=== PATIENT | female | born 1935 | race Caucasian/White ===

== ENCOUNTER 2021-08-10 17:04 | Inpatient (IN) | payer MEDICARE, OTHER ==
[2021-08-10 17:45] LABS: ALT (SGPT) 22 U/L (8-55); AST (SGOT) 42 U/L (5-34); Albumin 4.4 g/dL (3.4-4.8); Alkaline Phosphatase 53 U/L (40-110); Anion Gap 16 mmol/L (10-20); BUN (Urea Nitrogen) 22 mg/dL (9.8-20.1); Bilirubin, Total 0.8 mg/dL (0.2-1.2); Calc. Creatinine Clearance 0 mL/min (70-130); Calcium 9.9 mg/dL (7.8-10.44); Carbon Dioxide 31 mmol/L (23-31); Chloride 95 mmol/L (98-107); Globulin 2.6 g/dL (2.4-3.5); Glucose 112 mg/dL (83-110); Potassium 3.4 mmol/L (3.5-5.1); Sodium 139 mmol/L (136-145)
[2021-08-10 17:47] LABS: Hemoglobin 13.1 g/dL (12.0-15.5); Mean Corpuscular Hemoglobin 28.3 pg (27.0-33.0); Mean Corpuscular Volume 83.2 fl (81.6-98.3); Mean Platelet Volume 12.3 fl (7.4-10.4); Platelet Count 131 10x3/uL (150-450); RBC Distribution Width 13.9 % (11.5-14.5); Red Blood Cell (RBC) Count 4.63 10x6/uL (3.90-5.03); White Blood Cell (WBC) Count 4.3 10x3/uL (3.5-10.5)
[2021-08-10 18:05] LABS: CKMB 1.2 ng/mL (0-6.6)
[2021-08-10 18:06] LABS: Band 12 % (5-11); Lymphocytes 20 % (21-51); Monocytes 15 % (0-10); Reactive Lymphocytes 5 % (0-10)
[2021-08-10 18:07] LABS: Anisocytosis SLIGHT = 6-15 cells (100X) (0-5/hpf); Microcytosis SLIGHT = 6-15 cells (100X) (0-5/hpf); Neutrophil 48 % (42-75); Ovalocytes SLIGHT = 2-5 cells (100X) (0-1/hpf)
[2021-08-10 18:08] LABS: Large Platelets SLIGHT; Platelet Clumps SLIGHT; Platelet Morphology Comment Appears Adequate
[2021-08-10 18:09] LABS: MDiff Complete? YES
[2021-08-10] MEDS ORDERED: Atorvastatin Calcium 40 MG TAB PO SCH (21:00)
[2021-08-10] MEDS ORDERED: Dextrose 5% in Water 1,000 ML IV PRN (21:43)
[2021-08-10] MEDS ORDERED: Dextrose 50% Abboject 50 ML SYRINGE SLOW IVP PRN (21:43)
[2021-08-10] MEDS ORDERED: Insulin Regular 300 UNITS/3 ML VIAL SC PRN (21:43)
[2021-08-10] MEDS ORDERED: Potassium Chloride 20 MEQ TAB PO SCH (21:45)
[2021-08-10 22:48] VITALS: BMI 21.4
[2021-08-11 06:37] LABS: Anion Gap 16 mmol/L (10-20); BUN (Urea Nitrogen) 19 mg/dL (9.8-20.1); Calc. Creatinine Clearance 59 mL/min (70-130); Calcium 8.8 mg/dL (7.8-10.44); Carbon Dioxide 28 mmol/L (23-31); Cardiac Risk 3.5 (Less than 4.5); Chloride 99 mmol/L (98-107); Cholesterol 125 mg/dl (< 200 Desired); Glucose 94 mg/dL (83-110); HDL Cholesterol 36 mg/dL (>60 Neg Risk); LDL Cholesterol, Calculated 71 mg/dL; Potassium 3.9 mmol/L (3.5-5.1); Sodium 139 mmol/L (136-145); Triglycerides 92 mg/dL (Less than 150)
[2021-08-11 06:56] LABS: Hemoglobin 11.6 g/dL (12.0-15.5); Mean Corpuscular HGB CONC 33.7 g/dL (32.0-36.0); Mean Corpuscular Hemoglobin 28.4 pg (27.0-33.0); Mean Corpuscular Volume 84.3 fl (81.6-98.3); Mean Platelet Volume 12.8 fl (7.4-10.4); Platelet Count 108 10x3/uL (150-450); RBC Distribution Width 13.9 % (11.5-14.5); Red Blood Cell (RBC) Count 4.08 10x6/uL (3.90-5.03); White Blood Cell (WBC) Count 4.9 10x3/uL (3.5-10.5)
[2021-08-11 07:06] LABS: MDiff Complete? YES
[2021-08-11 07:07] LABS: Platelet Morphology Comment Appears Adequate
[2021-08-11 07:08] LABS: RBC Morphology Normal
[2021-08-11 07:12] LABS: Band 6 % (5-11); Lymphocytes 23 % (21-51); Monocytes 15 % (0-10); Neutrophil 56 % (42-75)
[2021-08-11 07:13] LABS: CKMB 1.1 ng/mL (0-6.6)
[2021-08-11] MEDS ORDERED: Iopamidol 370 76% 100 ML VIAL ONE (08:00)
[2021-08-11 08:50] LABS: SARS-CoV-2 NAA Rapid Test DETECTED (NotDetected)
[2021-08-11] MEDS ORDERED: Aspirin 81 mg Enteric Coated Tablet PO SCH (09:00)
[2021-08-11] MEDS: Aspirin 81 mg Enteric Coated Tablet PO SCH (09:44)
[2021-08-11] MEDS: Ezetimibe 10 MG TAB PO SCH (09:44)
[2021-08-11] MEDS: metFORMIN 500 MG TAB PO SCH ×2 (09:44→15:58)
[2021-08-11] MEDS: Enoxaparin Sodium 40 MG/0.4 ML SYRINGE SC SCH (09:44)
[2021-08-11] MEDS ORDERED: Lorazepam 2 MG/ML VIAL SLOW IVP PRN (10:45)
[2021-08-11] MEDS ORDERED: Pharmacy to Dose REMDESIVIR IVPB PRN (16:46)
[2021-08-11] MEDS ORDERED: REMDESIVIR 200 MG in Sodium Chloride 0.9% 250 ML 210 ML IV SCH (18:00)
[2021-08-11] MEDS ORDERED: Atorvastatin Calcium 40 MG TAB PO SCH (21:00)
[2021-08-11] MEDS: Atorvastatin Calcium 40 MG TAB PO SCH (21:36)
[2021-08-12 04:10] LABS: #Monocytes 0.6 10x3/uL (0.0-1.1); %Basophils 0.7 % (0.0-2.0); %Eosinophils 0.7 % (0.0-6.0); %Monocytes 13.5 % (0.0-10.0); %Neutrophils 48.9 % (40.0-75.0); Hemoglobin 11.5 g/dL (12.0-15.5); Mean Corpuscular HGB CONC 32.1 g/dL (32.0-36.0); Mean Corpuscular Volume 87.3 fl (81.6-98.3); Mean Platelet Volume 11.3 fl (7.4-10.4); Platelet Count 116 10x3/uL (150-450); RBC Distribution Width 13.9 % (11.5-14.5); White Blood Cell (WBC) Count 4.1 10x3/uL (3.5-10.5)
[2021-08-12 04:31] LABS: ALT (SGPT) 17 U/L (8-55); AST (SGOT) 33 U/L (5-34); Albumin 3.4 g/dL (3.4-4.8); Alkaline Phosphatase 44 U/L (40-110); Bilirubin, Direct 0.4 mg/dL (0.1-0.3); Bilirubin, Total 0.6 mg/dL (0.2-1.2); Protein, Total 5.7 g/dL (5.8-8.1)
[2021-08-12 04:33] LABS: Anion Gap 17 mmol/L (10-20); BUN (Urea Nitrogen) 21 mg/dL (9.8-20.1); Calc. Creatinine Clearance 57 mL/min (70-130); Calcium 8.6 mg/dL (7.8-10.44); Carbon Dioxide 28 mmol/L (23-31); Chloride 100 mmol/L (98-107); Glucose 80 mg/dL (83-110); Potassium 3.6 mmol/L (3.5-5.1); Sodium 141 mmol/L (136-145)
[2021-08-12] MEDS: Enoxaparin Sodium 40 MG/0.4 ML SYRINGE SC SCH (08:39)
[2021-08-12] MEDS: Ezetimibe 10 MG TAB PO SCH (08:39)
[2021-08-12] MEDS: Aspirin 81 mg Enteric Coated Tablet PO SCH (08:39)
[2021-08-12] MEDS: metFORMIN 500 MG TAB PO SCH ×2 (09:21→16:32)
[2021-08-12] MEDS ORDERED: Clopidogrel Bisulfate 75 MG TAB PO SCH ×2 (11:00→16:15)
[2021-08-12] MEDS: cefTRIAXone\\ROCEPHIN 1 GM in Sodium Chloride 0.9% 100 ML IVPB SCH (16:12)
[2021-08-12] MEDS: REMDESIVIR 100 MG in Sodium Chloride 0.9% 250 ML 230 ML IV SCH (17:43)
[2021-08-12] MEDS: hydrOXYzine 25 MG TAB PO PRN (19:41)
[2021-08-12] MEDS: Atorvastatin Calcium 40 MG TAB PO SCH (19:41)
[2021-08-12] MEDS ORDERED: Furosemide 20 MG/2 ML VIAL SLOW IVP SCH (20:30)
[2021-08-13 04:34] LABS: #Monocytes 0.6 10x3/uL (0.0-1.1); #Neutrophils 5.4 10x3/uL (1.5-8.4); %Eosinophils 0.5 % (0.0-6.0); %Lymphocytes 8.5 % (18.0-47.0); %Monocytes 8.5 % (0.0-10.0); %Neutrophils 82.3 % (40.0-75.0); Mean Corpuscular HGB CONC 33.1 g/dL (32.0-36.0); Mean Corpuscular Hemoglobin 28.1 pg (27.0-33.0); Mean Corpuscular Volume 85.1 fl (81.6-98.3); Mean Platelet Volume 11.4 fl (7.4-10.4); Platelet Count 138 10x3/uL (150-450); RBC Distribution Width 13.7 % (11.5-14.5); Red Blood Cell (RBC) Count 4.62 10x6/uL (3.90-5.03); White Blood Cell (WBC) Count 6.6 10x3/uL (3.5-10.5)
[2021-08-13 04:59] LABS: Anion Gap 19 mmol/L (10-20); BUN (Urea Nitrogen) 23 mg/dL (9.8-20.1); Calc. Creatinine Clearance 54 mL/min (70-130); Calcium 8.7 mg/dL (7.8-10.44); Carbon Dioxide 28 mmol/L (23-31); Chloride 98 mmol/L (98-107); Glucose 131 mg/dL (83-110); Potassium 3.3 mmol/L (3.5-5.1); Sodium 142 mmol/L (136-145)
[2021-08-13 05:01] LABS: ALT (SGPT) 18 U/L (8-55); AST (SGOT) 35 U/L (5-34); Albumin 3.6 g/dL (3.4-4.8); Alkaline Phosphatase 51 U/L (40-110); Bilirubin, Direct 0.4 mg/dL (0.1-0.3); Bilirubin, Total 0.6 mg/dL (0.2-1.2); Protein, Total 6.1 g/dL (5.8-8.1)
[2021-08-13] MEDS ORDERED: Electrolyte Replacement Protocol 1 EACH FS SCH (07:30)
[2021-08-13] MEDS: metFORMIN 500 MG TAB PO SCH ×2 (09:00→15:31)
[2021-08-13] MEDS: Enoxaparin Sodium 40 MG/0.4 ML SYRINGE SC SCH (09:00)
[2021-08-13] MEDS: hydrOXYzine 25 MG TAB PO PRN ×2 (09:00→15:35)
[2021-08-13] MEDS: Clopidogrel Bisulfate 75 MG TAB PO SCH (09:00)
[2021-08-13] MEDS: Ezetimibe 10 MG TAB PO SCH (09:00)
[2021-08-13] MEDS: Aspirin 81 mg Enteric Coated Tablet PO SCH (09:00)
[2021-08-13] MEDS ORDERED: Potassium Chloride 20 MEQ TAB PO SCH (09:00)
[2021-08-13] MEDS: cefTRIAXone\\ROCEPHIN 1 GM in Sodium Chloride 0.9% 100 ML IVPB SCH (16:51)
[2021-08-13] MEDS: REMDESIVIR 100 MG in Sodium Chloride 0.9% 250 ML 230 ML IV SCH (18:23)
[2021-08-13] MEDS: traZODone HCl 50 MG TAB PO PRN (20:04)
[2021-08-13] MEDS: Atorvastatin Calcium 40 MG TAB PO SCH (20:04)
[2021-08-14 05:53] LABS: Anion Gap 17 mmol/L (10-20); BUN (Urea Nitrogen) 34 mg/dL (9.8-20.1); Calc. Creatinine Clearance 54 mL/min (70-130); Calcium 8.8 mg/dL (7.8-10.44); Carbon Dioxide 29 mmol/L (23-31); Chloride 103 mmol/L (98-107); Glucose 120 mg/dL (83-110); Phosphorus 2.4 mg/dL (2.3-4.7); Potassium 3.6 mmol/L (3.5-5.1); Sodium 145 mmol/L (136-145)
[2021-08-14 05:56] LABS: ALT (SGPT) 16 U/L (8-55); AST (SGOT) 25 U/L (5-34); Albumin 3.3 g/dL (3.4-4.8); Alkaline Phosphatase 49 U/L (40-110); Bilirubin, Direct 0.4 mg/dL (0.1-0.3); Bilirubin, Total 0.7 mg/dL (0.2-1.2); Magnesium 1.9 mg/dL (1.6-2.6); Protein, Total 5.6 g/dL (5.8-8.1)
[2021-08-14 05:58] LABS: #Eosinphils 0.6 10x3/uL (0.0-0.5); #Monocytes 0.5 10x3/uL (0.0-1.1); #Neutrophils 5.3 10x3/uL (1.5-8.4); %Basophils 0.3 % (0.0-2.0); %Eosinophils 8.6 % (0.0-6.0); %Lymphocytes 14.1 % (18.0-47.0); %Monocytes 6.2 % (0.0-10.0); %Neutrophils 70.5 % (40.0-75.0); Hemoglobin 12.3 g/dL (12.0-15.5); Mean Corpuscular HGB CONC 33.1 g/dL (32.0-36.0); Mean Corpuscular Hemoglobin 28.1 pg (27.0-33.0); Mean Corpuscular Volume 85.1 fl (81.6-98.3); Mean Platelet Volume 11.4 fl (7.4-10.4); Platelet Count 141 10x3/uL (150-450); RBC Distribution Width 14.1 % (11.5-14.5); Red Blood Cell (RBC) Count 4.37 10x6/uL (3.90-5.03); White Blood Cell (WBC) Count 7.5 10x3/uL (3.5-10.5)
[2021-08-14] MEDS: metFORMIN 500 MG TAB PO SCH ×2 (10:24→17:42)
[2021-08-14] MEDS: Enoxaparin Sodium 40 MG/0.4 ML SYRINGE SC SCH (10:24)
[2021-08-14] MEDS: Ezetimibe 10 MG TAB PO SCH (10:24)
[2021-08-14] MEDS: Clopidogrel Bisulfate 75 MG TAB PO SCH (10:24)
[2021-08-14] MEDS: Aspirin 81 mg Enteric Coated Tablet PO SCH (10:24)
[2021-08-14] MEDS ORDERED: Magnesium 2 GM/50 ML(in water) 2 GM in Premix Bag 1 BAG IVPB SCH (13:00)
[2021-08-14] MEDS: cefTRIAXone\\ROCEPHIN 1 GM in Sodium Chloride 0.9% 100 ML IVPB SCH (17:44)
[2021-08-14] MEDS: REMDESIVIR 100 MG in Sodium Chloride 0.9% 250 ML 230 ML IV SCH (17:45)
[2021-08-14] MEDS: Atorvastatin Calcium 40 MG TAB PO SCH (20:37)
[2021-08-15 07:00] LABS: Anion Gap 16 mmol/L (10-20); BUN (Urea Nitrogen) 36 mg/dL (9.8-20.1); Calc. Creatinine Clearance 57 mL/min (70-130); Calcium 8.8 mg/dL (7.8-10.44); Carbon Dioxide 29 mmol/L (23-31); Chloride 104 mmol/L (98-107); Glucose 116 mg/dL (83-110); Magnesium 2.4 mg/dL (1.6-2.6); Sodium 145 mmol/L (136-145)
[2021-08-15 07:34] LABS: #Monocytes 0.7 10x3/uL (0.0-1.1); #Neutrophils 6.4 10x3/uL (1.5-8.4); %Basophils 0.2 % (0.0-2.0); %Eosinophils 10.1 % (0.0-6.0); %Lymphocytes 13.4 % (18.0-47.0); %Monocytes 7.8 % (0.0-10.0); %Neutrophils 68.1 % (40.0-75.0); Hemoglobin 12.6 g/dL (12.0-15.5); Mean Corpuscular HGB CONC 33.2 g/dL (32.0-36.0); Mean Corpuscular Hemoglobin 28.2 pg (27.0-33.0); Mean Corpuscular Volume 84.8 fl (81.6-98.3); Mean Platelet Volume 12.5 fl (7.4-10.4); Platelet Count 139 10x3/uL (150-450); RBC Distribution Width 14.1 % (11.5-14.5); Red Blood Cell (RBC) Count 4.47 10x6/uL (3.90-5.03); White Blood Cell (WBC) Count 9.4 10x3/uL (3.5-10.5)
[2021-08-15] MEDS ORDERED: Aspirin 300 MG Suppository PR SCH (09:00)
[2021-08-15] MEDS: metFORMIN 500 MG TAB PO SCH ×2 (09:01→16:02)
[2021-08-15] MEDS: Enoxaparin Sodium 40 MG/0.4 ML SYRINGE SC SCH (09:01)
[2021-08-15] MEDS: Ezetimibe 10 MG TAB PO SCH (09:01)
[2021-08-15] MEDS: Losartan Potassium 50 MG TAB PO SCH (09:02)
[2021-08-15] MEDS: Clopidogrel Bisulfate 75 MG TAB PO SCH (09:02)
[2021-08-15] MEDS: Aspirin 81 mg Enteric Coated Tablet PO SCH (09:02)
[2021-08-15] MEDS: cefTRIAXone\\ROCEPHIN 1 GM in Sodium Chloride 0.9% 100 ML IVPB SCH (16:03)
[2021-08-15] MEDS ORDERED: Sodium Chloride 0.9% 100 ML ONE (16:04)
[2021-08-15] MEDS: REMDESIVIR 100 MG in Sodium Chloride 0.9% 250 ML 230 ML IV SCH (18:08)
[2021-08-15] MEDS: Atorvastatin Calcium 40 MG TAB PO SCH (20:56)
[2021-08-15] MEDS: traZODone HCl 50 MG TAB PO PRN (22:23)
[2021-08-16] MEDS: hydrOXYzine 25 MG TAB PO PRN ×2 (02:36→20:12)
[2021-08-16] MEDS: Enoxaparin Sodium 40 MG/0.4 ML SYRINGE SC SCH (09:04)
[2021-08-16] MEDS: Ezetimibe 10 MG TAB PO SCH (09:04)
[2021-08-16] MEDS: metFORMIN 500 MG TAB PO SCH ×2 (09:04→16:55)
[2021-08-16] MEDS: Losartan Potassium 50 MG TAB PO SCH (09:05)
[2021-08-16] MEDS: Clopidogrel Bisulfate 75 MG TAB PO SCH (09:05)
[2021-08-16] MEDS: Aspirin Chewable 81 MG TAB PO SCH (09:06)
[2021-08-16] MEDS: cefTRIAXone\\ROCEPHIN 1 GM in Sodium Chloride 0.9% 100 ML IVPB SCH (16:51)
[2021-08-16] MEDS: Atorvastatin Calcium 40 MG TAB PO SCH (20:12)
[2021-08-16] MEDS: Transdermal Patch Removal TOP SCH (20:13)
[2021-08-17] MEDS: Enoxaparin Sodium 40 MG/0.4 ML SYRINGE SC SCH (09:45)
[2021-08-17] MEDS: Clopidogrel Bisulfate 75 MG TAB PO SCH (09:45)
[2021-08-17] MEDS: Losartan Potassium 50 MG TAB PO SCH (09:45)
[2021-08-17] MEDS: Aspirin Chewable 81 MG TAB PO SCH (09:45)
[2021-08-17] MEDS: Ezetimibe 10 MG TAB PO SCH (09:45)
[2021-08-17] MEDS: metFORMIN 500 MG TAB PO SCH ×2 (09:45→16:48)
[2021-08-17] MEDS: Lidocaine 5% Patch TD SCH (09:46)
[2021-08-17] MEDS ORDERED: Bisacodyl 10 MG SUPP PR PRN (14:21)
[2021-08-17] MEDS: hydrOXYzine 25 MG TAB PO PRN ×2 (15:44→21:23)
[2021-08-17] MEDS: cefTRIAXone\\ROCEPHIN 1 GM in Sodium Chloride 0.9% 100 ML IVPB SCH (15:44)
[2021-08-17] MEDS: Atorvastatin Calcium 40 MG TAB PO SCH (21:22)
[2021-08-17] MEDS: Transdermal Patch Removal TOP SCH (21:22)
[2021-08-17] MEDS: traZODone HCl 50 MG TAB PO PRN (23:05)
[2021-08-18] MEDS: metFORMIN 500 MG TAB PO SCH ×2 (10:08→16:10)
[2021-08-18] MEDS: Enoxaparin Sodium 40 MG/0.4 ML SYRINGE SC SCH (10:08)
[2021-08-18] MEDS: Aspirin Chewable 81 MG TAB PO SCH (10:08)
[2021-08-18] MEDS: Lidocaine 5% Patch TD SCH (10:08)
[2021-08-18] MEDS: Losartan Potassium 50 MG TAB PO SCH (10:08)
[2021-08-18] MEDS: Clopidogrel Bisulfate 75 MG TAB PO SCH (10:08)
[2021-08-18] MEDS: Ezetimibe 10 MG TAB PO SCH (10:08)
[2021-08-18] MEDS ORDERED: Mineral Oil ENEMA PR SCH (13:30)
[2021-08-18] MEDS: hydrOXYzine 25 MG TAB PO PRN (16:10)
[2021-08-18] MEDS: Atorvastatin Calcium 40 MG TAB PO SCH (20:22)
[2021-08-18] MEDS: Transdermal Patch Removal TOP SCH (21:00)
[2021-08-19] MEDS: hydrOXYzine 25 MG TAB PO PRN ×2 (04:09→16:41)
[2021-08-19] MEDS: Clopidogrel Bisulfate 75 MG TAB PO SCH (09:42)
[2021-08-19] MEDS: Aspirin Chewable 81 MG TAB PO SCH (09:42)
[2021-08-19] MEDS: Ezetimibe 10 MG TAB PO SCH (09:42)
[2021-08-19] MEDS: Enoxaparin Sodium 40 MG/0.4 ML SYRINGE SC SCH (09:42)
[2021-08-19] MEDS: Losartan Potassium 50 MG TAB PO SCH (09:42)
[2021-08-19] MEDS: metFORMIN 500 MG TAB PO SCH ×2 (09:42→16:41)
[2021-08-19] MEDS: Lidocaine 5% Patch TD SCH ×2 (09:42→10:04)
[2021-08-19] MEDS: traZODone HCl 50 MG TAB PO PRN (21:55)
[2021-08-19] MEDS: Atorvastatin Calcium 40 MG TAB PO SCH (21:55)
[2021-08-20] MEDS: Transdermal Patch Removal TOP SCH (04:05)
[2021-08-20 05:17] LABS: #Basophils 0.1 10x3/uL (0.0-0.2); #Eosinphils 0.9 10x3/uL (0.0-0.5); #Monocytes 0.8 10x3/uL (0.0-1.1); #Neutrophils 5.8 10x3/uL (1.5-8.4); %Basophils 0.5 % (0.0-2.0); %Eosinophils 9.3 % (0.0-6.0); %Lymphocytes 18.2 % (18.0-47.0); %Monocytes 8.2 % (0.0-10.0); %Neutrophils 63.1 % (40.0-75.0); Hemoglobin 11.2 g/dL (12.0-15.5); Mean Corpuscular Hemoglobin 27.9 pg (27.0-33.0); Mean Corpuscular Volume 87.3 fl (81.6-98.3); Mean Platelet Volume 11.1 fl (7.4-10.4); Platelet Count 211 10x3/uL (150-450); RBC Distribution Width 14.2 % (11.5-14.5); Red Blood Cell (RBC) Count 4.01 10x6/uL (3.90-5.03); White Blood Cell (WBC) Count 9.1 10x3/uL (3.5-10.5)
[2021-08-20 05:22] LABS: Anion Gap 12 mmol/L (10-20); BUN (Urea Nitrogen) 25 mg/dL (9.8-20.1); Calc. Creatinine Clearance 59 mL/min (70-130); Calcium 9.2 mg/dL (7.8-10.44); Carbon Dioxide 30 mmol/L (23-31); Chloride 110 mmol/L (98-107); Glucose 104 mg/dL (83-110); Potassium 3.4 mmol/L (3.5-5.1); Sodium 149 mmol/L (136-145)
[2021-08-20] MEDS ORDERED: Potassium Chloride 20 MEQ TAB PO SCH (05:30)
[2021-08-20] MEDS: Lidocaine 5% Patch TD SCH (08:05)
[2021-08-20] MEDS: Clopidogrel Bisulfate 75 MG TAB PO SCH (08:05)
[2021-08-20] MEDS: Aspirin Chewable 81 MG TAB PO SCH (08:05)
[2021-08-20] MEDS: metFORMIN 500 MG TAB PO SCH (08:05)
[2021-08-20] MEDS: Enoxaparin Sodium 40 MG/0.4 ML SYRINGE SC SCH (08:05)
[2021-08-20] MEDS: Losartan Potassium 50 MG TAB PO SCH (08:05)
[2021-08-20] MEDS: Ezetimibe 10 MG TAB PO SCH (08:05)
[2021-08-20 12:05] VITALS: BP 169/58; TEMP 96.7
== END 2021-08-20 15:33 | DRG 64 ==
LOC: CSHERS 17:04 → CSHTELE 22:11
PROVIDERS: ADMIT Internal Medicine; ATTEND Internal Medicine
PROC: 8E0ZXY6 Isolation (ICD-10-PCS; principal; 2021-08-10)
PROC: XW033E5 Introduction of Remdesivir Anti-infective into Peripheral Vein, Percutaneous Approach, New Technology Group 5 (ICD-10-PCS; 2021-08-11)
DX: I63.9 Cerebral infarction, unspecified (principal); U07.1 COVID-19; J69.0 Pneumonitis due to inhalation of food and vomit; J96.01 Acute respiratory failure with hypoxia; G81.91 Hemiplegia, unspecified affecting right dominant side; F84.0 Autistic disorder; I25.10 Atherosclerotic heart disease of native coronary artery without angina pectoris; E11.9 Type 2 diabetes mellitus without complications; I10 Essential (primary) hypertension; E87.6 Hypokalemia; D69.6 Thrombocytopenia, unspecified; R29.810 Facial weakness; R29.707 NIHSS score 7; R33.9 Retention of urine, unspecified; K59.00 Constipation, unspecified; I35.0 Nonrheumatic aortic (valve) stenosis; I35.1 Nonrheumatic aortic (valve) insufficiency; I65.23 Occlusion and stenosis of bilateral carotid arteries; R79.89 Other specified abnormal findings of blood chemistry; E78.5 Hyperlipidemia, unspecified; J44.9 Chronic obstructive pulmonary disease, unspecified; F03.90 Unspecified dementia, unspecified severity, without behavioral disturbance, psychotic disturbance, mood disturbance, and anxiety; Z88.2 Allergy status to sulfonamides; Z88.8 Allergy status to other drugs, medicaments and biological substances; Z79.899 Other long term (current) drug therapy; Z79.82 Long term (current) use of aspirin; Z79.84 Long term (current) use of oral hypoglycemic drugs; Z95.2 Presence of prosthetic heart valve; Z95.1 Presence of aortocoronary bypass graft; Z87.891 Personal history of nicotine dependence; Z83.3 Family history of diabetes mellitus; Z82.49 Family history of ischemic heart disease and other diseases of the circulatory system; Z90.49 Acquired absence of other specified parts of digestive tract; Z90.710 Acquired absence of both cervix and uterus; Z28.310 Unvaccinated for COVID-19
CPT/HCPCS: 36415; 36416; 70450; 70496; 70498; 70551; 71045; 74018; 80048; 80053; 80061; 80076; 82553; 83735; 84100; 84484; 85025; 93005; 93306; 94760; J0248; J0696; J1650; J1940; J2060; J3475; J3490; J7050; Q9967; U0002